=== PATIENT | female | born 1990 | race Caucasian/White ===

== ENCOUNTER 2016-03-10 23:46 | Outpatient (CLI) | payer BC ==
[~2016-03-10] VITALS: Ht 165.1 cm; Wt 105.2 kg
[~2016-03-10 23:46] MED LIST: ENDOCET 5-3251 EACH PO; FOLIC ACID0.4 MG; IBUPROFEN800 MG PO; NAPROSYN500 MG PO; NOHOMEMEDS; NORCO 5/3251 TABLET PO; PERCOCET 5/31 TABLET PO; ZOFRAN4 MG PO
[2016-03-11 00:11] VITALS: BP 121/75
[2016-03-11 01:13] LABS: EOSINOPHIL (%) 1.4 % (0-5); EOSINOPHIL COUNT 0.1 K/uL (0-0.3); HEMATOCRIT 34.1 % (36.0-46.0); IMMATURE GRANULOCYTE (%) 0.1 % (0.0-0.7); IMMATURE GRANULOCYTE COUNT 0.1 K/uL; LYMPHOCYTE COUNT 0.8 K/uL (1.0-2.8); MCH 27.4 PG (29.0-34.0); MCHC 33.4 G/DL (30.0-36.0); MEAN PLAT.VOLUME 10.4 uM^3 (9.5-12.4); MONOCYTE (%) 8.7 % (3-12); MONOCYTE COUNT 0.7 K/uL (0-0.8); NEUTROPHIL (%) 79.4 % (45-76); NEUTROPHIL COUNT 6.4 K/uL (1.8-6.4); PLATELET COUNT 240 K/uL (156-360); RBC DIS.WIDTH-SD 43.4 % (39-53); RED BLOOD COUNT 4.16 M/uL (3.80-5.20); WHITE BLOOD COUNT 8.1 K/uL (4.1-10.2)
[2016-03-11 01:45] LABS: AMPHETAMINES QUANT VALUE 0 NG/ML; BARBITUATES QUANT VALUE 0 NG/ML; BENZODIAZEPINES QUANT VALUE 0 NG/ML; BENZODIAZEPINES, URINE SCREEN Negative (200 ng/mL); MARIJUANA QUANT VALUE 0 NG/ML; OPIATES QUANTITATIVE VALUE 0 NG/ML; PHENCYCLIDINE QUANT VALUE 0 NG/ML
[2016-03-11 01:58] VITALS: BP 112/69
[2016-03-11] MEDS ORDERED: PRENATAL TABLE1 EAC3 PO (02:06)
[2016-03-11] MEDS ORDERED: LABETALOL HCL200 MG PO (02:06)
== END 2016-03-11 04:10 | disposition home or self-care (01) ==
LOC: LDRP-OP 23:46 → 2WEST 23:47
PROVIDERS: Advanced Practice Midwife
DX: O46.92 Antepartum hemorrhage, unspecified, second trimester (principal); O99.89 Other specified diseases and conditions complicating pregnancy, childbirth and the puerperium; Z3A.23 23 weeks gestation of pregnancy
CPT/HCPCS: 59025; 76815; 85025; 86850; 86900; 86901; G0378; J2790

== ENCOUNTER → 2016-04-08 | Outpatient (CLI) | payer BC ==
[~2016-04-08] MED LIST changes: +LABETALOL HCL200 MG PO; +PRENATAL TABLE1 EAC3 PO
== END | disposition home or self-care (01) ==
LOC: CDC 14:42
DX: O99.210 Obesity complicating pregnancy, unspecified trimester (principal); O09.90 Supervision of high risk pregnancy, unspecified, unspecified trimester; I10 Essential (primary) hypertension
CPT/HCPCS: 93000

== ENCOUNTER → 2016-06-17 | Outpatient (CLI) | payer BC, OTHER ==
[~2016-06-17] VITALS: Ht 165.1 cm; Wt 110.5 kg
[~2016-06-17] MED LIST changes: +LO-DOSE ASPIRIN81 M2 PO
[2016-06-17 14:57] VITALS: BP 133/89
== END | disposition home or self-care (01) ==
LOC: IVINF 14:31
DX: Z31.82 Encounter for Rh incompatibility status (principal); Z3A.37 37 weeks gestation of pregnancy
CPT/HCPCS: 96372; J2790

== ENCOUNTER 2016-06-30 06:52 | Inpatient (IN) | payer BC, OTHER ==
[2016-06-30] VITALS (32 sets, daily range): BP systolic 99–149; BP diastolic 51–96
[~2016-06-30] VITALS: Ht 165.1 cm; Wt 111.1 kg
[2016-06-30 09:29] LABS: EOSINOPHIL (%) 0.5 % (0-5); HEMATOCRIT 36.3 % (36.0-46.0); IMMATURE GRANULOCYTE (%) 0.3 % (0.0-0.7); INSTRUMENT ABS NEUTROPHIL CT 5.2 K/uL; LYMPHOCYTE COUNT 0.6 K/uL (1.0-2.8); MCH 25.6 PG (29.0-34.0); MCHC 31.1 G/DL (30.0-36.0); MCV 82.1 FL (83-99); MONOCYTE (%) 8.8 % (3-12); MONOCYTE COUNT 0.6 K/uL (0-0.8); NEUTROPHIL (%) 80.7 % (45-76); NEUTROPHIL COUNT 5.2 K/uL (1.8-6.4); PLATELET COUNT 247 K/uL (156-360); RBC DIS.WIDTH-CV 13.9 % (11.8-14.6); RBC DIS.WIDTH-SD 40.8 % (39-53); RED BLOOD COUNT 4.42 M/uL (3.80-5.20); WHITE BLOOD COUNT 6.5 K/uL (4.1-10.2)
[2016-06-30 09:48] LABS: ANION GAP 9 MEQ/L (2-14); CHLORIDE 105 MEQ/L (99-109); POTASSIUM 4.2 MEQ/L (3.7-5.4); SAMPLE HEMOLYSIS CHECK 0; SAMPLE ICTERIC CHECK 0; SAMPLE LIPEMIA CHECK 0; SODIUM 136 MEQ/L (136-147); TOTAL BILIRUBIN 0.5 MG/DL (0.0-1.0)
[2016-06-30 09:52] LABS: ADD MIUA? YES; BILIRUBIN NEGATIVE; BLOOD NEGATIVE; COLOR AMBER ((YELLOW)); GLUCOSE (STRIP) NEGATIVE; KETONES NEGATIVE; LEUKOCYTES SMALL; NITRITE NEGATIVE; PROTEIN (STRIP) 30; SPECIFIC GRAVITY 1.027 (1.000-1.030); UROBILINOGEN 0.2 MG/DL (0.2-1.0)
[2016-06-30 09:53] LABS: ALKALINE PHOSPHATASE 145 IU/L (3-129); GFR ESTIMATE (CALCULATED) > 59 mL/min/; GLUCOSE 80 mg/dL (70-99); LACTATE DEHYDROGENASE 166 IU/L (20-246); UREA NITROGEN (BUN) 6 mg/dL (9-23); URIC ACID 3.7 mg/dL (3.1-9.2)
[2016-06-30 10:00] LABS: BACTERIA RARE /HPF; EPITHELIAL CELLS 2+ /HPF; MUCUS 2+ /LPF; RED BLOOD CELLS 0-5 /HPF (0-5); UCUL ADDED? NO
[2016-06-30 10:29] LABS: UR CREATININE CONCENTRATION 265.3 MG/DL
[2016-07-01] VITALS (8 sets, daily range): BP systolic 110–131; BP diastolic 54–74
[2016-07-01 08:31] LABS: EOSINOPHIL (%) 0.4 % (0-5); HEMATOCRIT 29.5 % (36.0-46.0); IMMATURE GRANULOCYTE (%) 0.3 % (0.0-0.7); INSTRUMENT ABS NEUTROPHIL CT 6.1 K/uL; LYMPHOCYTE COUNT 0.6 K/uL (1.0-2.8); MCH 25.9 PG (29.0-34.0); MCHC 31.2 G/DL (30.0-36.0); MCV 83.1 FL (83-99); MEAN PLAT.VOLUME 10.2 uM^3 (9.5-12.4); MONOCYTE (%) 7.9 % (3-12); MONOCYTE COUNT 0.6 K/uL (0-0.8); NEUTROPHIL (%) 83.5 % (45-76); NEUTROPHIL COUNT 6.1 K/uL (1.8-6.4); PLATELET COUNT 203 K/uL (156-360); RBC DIS.WIDTH-CV 13.8 % (11.8-14.6); RBC DIS.WIDTH-SD 42.3 % (39-53); RED BLOOD COUNT 3.55 M/uL (3.80-5.20); WHITE BLOOD COUNT 7.3 K/uL (4.1-10.2)
[2016-07-02 02:58] VITALS: BP 120/67
[2016-07-02 08:00] VITALS: BP 136/74
== END 2016-07-02 16:04 | disposition home or self-care (01) | DRG 775 ==
LOC: LDRP-OP → 2WEST 06:53 → LDRP-OP 07:05 → 2WEST 17:46 → LDRP-OP 08-06 05:27
PROVIDERS: Advanced Practice Midwife
PROC: 3E033VJ Introduction of Other Hormone into Peripheral Vein, Percutaneous Approach (ICD-10-PCS; principal; 2016-06-30)
PROC: 00HU33Z Insertion of Infusion Device into Spinal Canal, Percutaneous Approach (ICD-10-PCS; principal; 2016-06-30)
PROC: 3E0R3CZ (ICD-10-PCS; principal; 2016-06-30)
PROC: 10E0XZZ Delivery of Products of Conception, External Approach (ICD-10-PCS; principal; 2016-06-30)
DX: O14.94 Unspecified pre-eclampsia, complicating childbirth (principal); O13.4 Gestational [pregnancy-induced] hypertension without significant proteinuria, complicating childbirth; O99.824 Streptococcus B carrier state complicating childbirth; Z3A.38 38 weeks gestation of pregnancy; Z37.0 Single live birth
CPT/HCPCS: 80053; 81003; 82570; 83615; 84156; 84550; 85025; 88307; C1755; J0595; J2540; J3010; J7120

== ENCOUNTER 2016-12-27 16:18 | Emergency (ER) | payer BC, OTHER ==
[~2016-12-27] VITALS: Ht 165.1 cm; Wt 116.9 kg
[2016-12-27 20:18] LABS: HEMATOCRIT 37.9 % (36.0-46.0); MCH 23.8 PG (29.0-34.0); MCHC 30.9 G/DL (30.0-36.0); MCV 77.2 FL (83-99); PLATELET COUNT 374 K/uL (156-360); RBC DIS.WIDTH-CV 13.4 % (11.8-14.6); RBC DIS.WIDTH-SD 37.5 % (39-53); RED BLOOD COUNT 4.91 M/uL (3.80-5.20); WHITE BLOOD COUNT 6.1 K/uL (4.1-10.2)
[2016-12-27 20:25] LABS: CHLORIDE 110 mEq/L (99-109); SODIUM 139 mEq/L (136-147)
[2016-12-27 20:27] LABS: GLUCOSE 99 mg/dL (70-99)
[2016-12-27 20:28] LABS: ANION GAP 7 MEQ/L (2-14)
[2016-12-27 20:31] LABS: GFR ESTIMATE (CALCULATED) > 59 mL/min/
[2016-12-27 20:32] LABS: UREA NITROGEN (BUN) 12 mg/dL (9-23)
[2016-12-27 20:39] LABS: QUANTITATIVE HCG < 4.0 MIU/ML
[2016-12-27 20:44] LABS: ADD MIUA? YES; BILIRUBIN NEGATIVE; BLOOD SMALL; COLOR YELLOW ((YELLOW)); GLUCOSE (STRIP) NEGATIVE; KETONES NEGATIVE; LEUKOCYTES NEGATIVE; NITRITE NEGATIVE; PROTEIN (STRIP) NEGATIVE; SPECIFIC GRAVITY 1.018 (1.000-1.030); UROBILINOGEN 0.2 MG/DL (0.2-1.0)
[2016-12-27 20:46] LABS: BACTERIA NONE SEEN /HPF; EPITHELIAL CELLS RARE /HPF; MUCUS TRACE /LPF; RED BLOOD CELLS 0-5 /HPF (0-5); UCUL ADDED? NO; WHITE BLOOD CELLS 0-5 /HPF (0-5)
[2016-12-27] MEDS ORDERED: ANTIVERT25 MG PO (22:06)
[2016-12-27 22:35] VITALS: BP 161/94
== END 2016-12-27 22:39 | disposition home or self-care (01) ==
LOC: EME 16:18
PROVIDERS: Physician Assistant
DX: R51 Headache (principal); R42 Dizziness and giddiness; K21.9 Gastro-esophageal reflux disease without esophagitis
CPT/HCPCS: 71020; 80048; 81003; 84702; 85027; 93005; 99281; 99285; J1100; J1885; J2405; J7030

== ENCOUNTER 2017-08-30 16:28 | Emergency (ER) | payer OTHER ==
[~2017-08-30] VITALS: Ht 165.1 cm; Wt 116.9 kg
[~2017-08-30 16:28] MED LIST changes: +ANTIVERT25 MG PO
[2017-08-30 17:03] LABS: HEMATOCRIT 39.1 % (36.0-46.0); HEMOGLOBIN 12.1 G/DL (11.9-15.5); MCH 23.5 PG (29.0-34.0); MCHC 30.9 G/DL (30.0-36.0); MCV 76.1 FL (83-99); PLATELET COUNT 345 K/uL (156-360); RBC DIS.WIDTH-CV 14.7 % (11.8-14.6); RBC DIS.WIDTH-SD 40.2 % (39-53); RED BLOOD COUNT 5.14 M/uL (3.80-5.20)
[2017-08-30 17:15] LABS: ALBUMIN 4.5 g/dL (3.2-4.8)
[2017-08-30 17:16] LABS: CHLORIDE 107 mEq/L (99-109); POTASSIUM 3.8 mEq/L (3.7-5.4); SODIUM 142 mEq/L (136-147)
[2017-08-30 17:18] LABS: GLUCOSE 95 mg/dL (70-99); TOTAL PROTEIN 7.3 g/dL (6.4-8.3)
[2017-08-30 17:20] LABS: TOTAL BILIRUBIN 0.4 mg/dL (0.0-1.0)
[2017-08-30 17:21] LABS: ALKALINE PHOSPHATASE 124 IU/L (3-129)
[2017-08-30 17:22] LABS: CREATININE 0.8 mg/dL (0.6-1.3); GFR ESTIMATE (CALCULATED) > 59 mL/min/
[2017-08-30 17:23] LABS: AST (GOT) 13 IU/L (2-34); UREA NITROGEN (BUN) 9 mg/dL (9-23)
[2017-08-30 17:25] LABS: ALT (GPT) 12 IU/L (3-49)
[2017-08-30 17:31] LABS: QUANTITATIVE HCG < 4.0 MIU/ML
[2017-08-30 19:06] LABS: LIPASE 23 U/L (1.0-51.0)
[2017-08-30 21:16] LABS: APPEARANCE CLOUDY ((CLEAR)); COLOR YELLOW ((YELLOW))
[2017-08-30 21:17] LABS: BILIRUBIN SMALL; BLOOD SMALL; GLUCOSE (STRIP) NEGATIVE; KETONES NEGATIVE; LEUKOCYTES NEGATIVE; NITRITE NEGATIVE; PROTEIN (STRIP) TRACE; UROBILINOGEN 0.2 MG/DL (0.2-1.0)
[2017-08-30 21:46] LABS: EPITHELIAL CELLS RARE /HPF; MUCUS RARE /LPF; RED BLOOD CELLS NONE SEEN /HPF (0-5); WHITE BLOOD CELLS NONE SEEN /HPF (0-5)
[2017-08-30 21:47] LABS: AMORPHOUS URATES CRYSTALS 2+; BACTERIA RARE /HPF; UCUL ADDED? NO
[2017-08-30] MEDS ORDERED: ZOFRAN ODT8 MG PO (22:48)
[2017-08-30] MEDS ORDERED: BENTYL20 MG PO (22:48)
[2017-08-30 23:07] VITALS: BP 135/85
== END 2017-08-30 23:07 | disposition home or self-care (01) ==
LOC: EME 16:28
DX: R10.31 Right lower quadrant pain (principal); R11.0 Nausea; E86.0 Dehydration; M54.9 Dorsalgia, unspecified; R51 Headache; K57.30 Diverticulosis of large intestine without perforation or abscess without bleeding; Z90.49 Acquired absence of other specified parts of digestive tract
CPT/HCPCS: 74176; 80053; 81003; 83690; 84702; 85027; 87077; 87086; 87491; 87591; 99281; 99285; J1885; J2405; J7030

== ENCOUNTER 2017-09-19 13:17 | Emergency (ER) | payer OTHER ==
[~2017-09-19] VITALS: Ht 165.1 cm; Wt 116.5 kg
[~2017-09-19 13:17] MED LIST changes: +BENTYL20 MG PO; +ZOFRAN ODT8 MG PO
[2017-09-19 14:02] LABS: HEMATOCRIT 40.1 % (36.0-46.0); HEMOGLOBIN 12.7 G/DL (11.9-15.5); MCH 23.8 PG (29.0-34.0); MCHC 31.7 G/DL (30.0-36.0); MCV 75.1 FL (83-99); PLATELET COUNT 328 K/uL (156-360); RBC DIS.WIDTH-CV 14.6 % (11.8-14.6); RBC DIS.WIDTH-SD 39.2 % (39-53); RED BLOOD COUNT 5.34 M/uL (3.80-5.20); WHITE BLOOD COUNT 6.4 K/uL (4.1-10.2)
[2017-09-19 14:22] LABS: CHLORIDE 108 mEq/L (99-109); POTASSIUM 4.6 mEq/L (3.7-5.4); SODIUM 141 mEq/L (136-147)
[2017-09-19 14:23] LABS: GLUCOSE 89 mg/dL (70-99)
[2017-09-19 14:27] LABS: CREATININE 0.8 mg/dL (0.6-1.3); GFR ESTIMATE (CALCULATED) > 59 mL/min/
[2017-09-19 14:28] LABS: UREA NITROGEN (BUN) 11 mg/dL (9-23)
[2017-09-19 14:30] LABS: ALBUMIN 4.5 g/dL (3.2-4.8)
[2017-09-19 14:33] LABS: TOTAL PROTEIN 7.3 g/dL (6.4-8.3)
[2017-09-19 14:35] LABS: TOTAL BILIRUBIN 0.5 mg/dL (0.0-1.0)
[2017-09-19 14:36] LABS: ALKALINE PHOSPHATASE 127 IU/L (3-129)
[2017-09-19 14:38] LABS: QUANTITATIVE HCG < 4.0 MIU/ML
[2017-09-19 14:39] LABS: ALT (GPT) 13 IU/L (3-49); AST (GOT) 13 IU/L (2-34); DIRECT BILIRUBIN 0.2 mg/dL (0.0-0.3)
[2017-09-19] MEDS ORDERED: BENTYL20 MG PO (16:13)
[2017-09-19 16:27] LABS: APPEARANCE CLEAR ((CLEAR)); BILIRUBIN NEGATIVE; BLOOD NEGATIVE; COLOR YELLOW ((YELLOW)); GLUCOSE (STRIP) NEGATIVE; KETONES 5; LEUKOCYTES NEGATIVE; NITRITE NEGATIVE; PROTEIN (STRIP) NEGATIVE; SPECIFIC GRAVITY 1.013 (1.000-1.030); UCUL ADDED? NO; UROBILINOGEN 0.2 MG/DL (0.2-1.0)
[2017-09-19 16:47] VITALS: BP 112/79
== END 2017-09-19 16:47 | disposition home or self-care (01) ==
LOC: EME 13:17
DX: R10.31 Right lower quadrant pain (principal); K62.5 Hemorrhage of anus and rectum; K21.9 Gastro-esophageal reflux disease without esophagitis; Z87.19 Personal history of other diseases of the digestive system; Z90.49 Acquired absence of other specified parts of digestive tract; Z88.8 Allergy status to other drugs, medicaments and biological substances
CPT/HCPCS: 80048; 80076; 81003; 84702; 85027; 99281; 99284; J1885; J2405; J7030

== ENCOUNTER 2017-09-28 09:09 | Observation (INO) | payer OTHER ==
[~2017-09-28] VITALS: Ht 165.1 cm; Wt 116.4 kg
[2017-09-28 09:54] LABS: HEMATOCRIT 36.2 % (36.0-46.0); HEMOGLOBIN 11.5 G/DL (11.9-15.5); MCHC 31.8 G/DL (30.0-36.0); MCV 75.4 FL (83-99); PLATELET COUNT 270 K/uL (156-360); RBC DIS.WIDTH-CV 14.6 % (11.8-14.6); RBC DIS.WIDTH-SD 40.1 % (39-53); WHITE BLOOD COUNT 5.1 K/uL (4.1-10.2)
[2017-09-28 10:02] LABS: ALBUMIN 4.1 g/dL (3.2-4.8); CHLORIDE 110 mEq/L (99-109); POTASSIUM 4.3 mEq/L (3.7-5.4); SODIUM 140 mEq/L (136-147)
[2017-09-28 10:05] LABS: GLUCOSE 94 mg/dL (70-99); TOTAL PROTEIN 6.6 g/dL (6.4-8.3)
[2017-09-28 10:07] LABS: TOTAL BILIRUBIN 0.7 mg/dL (0.0-1.0)
[2017-09-28 10:08] LABS: ALKALINE PHOSPHATASE 117 IU/L (3-129); CREATININE 0.8 mg/dL (0.6-1.3); GFR ESTIMATE (CALCULATED) > 59 mL/min/
[2017-09-28 10:09] LABS: UREA NITROGEN (BUN) 9 mg/dL (9-23)
[2017-09-28 10:10] LABS: AST (GOT) 14 IU/L (2-34)
[2017-09-28 10:11] LABS: ALT (GPT) 12 IU/L (3-49)
[2017-09-28 10:17] LABS: QUANTITATIVE HCG < 4.0 MIU/ML
[2017-09-28 14:05] VITALS: BP 140/85
[2017-09-28 16:19] LABS: HEMATOCRIT 35.8 % (36.0-46.0); HEMOGLOBIN 10.8 G/DL (11.9-15.5); MCV 76.3 FL (83-99)
[2017-09-28 17:13] VITALS: BP 135/67
[2017-09-28 18:59] LABS: HEMATOCRIT 36.2 % (36.0-46.0); HEMOGLOBIN 11.1 G/DL (11.9-15.5); MCH 23.5 PG (29.0-34.0); MCHC 30.7 G/DL (30.0-36.0); MCV 76.7 FL (83-99); PLATELET COUNT 287 K/uL (156-360); RBC DIS.WIDTH-CV 14.6 % (11.8-14.6); RBC DIS.WIDTH-SD 40.4 % (39-53); RED BLOOD COUNT 4.72 M/uL (3.80-5.20); WHITE BLOOD COUNT 4.4 K/uL (4.1-10.2)
[2017-09-28 19:10] LABS: INTER. NORMALIZED RATIO 1.2
[2017-09-28 19:13] LABS: PTT 30.3 SEC (25-37)
[2017-09-28 19:17] VITALS: BP 132/87
[2017-09-28 22:06] LABS: HEMATOCRIT 37.3 % (36.0-46.0); HEMOGLOBIN 11.5 G/DL (11.9-15.5); MCV 75.7 FL (83-99)
[2017-09-29 00:07] VITALS: BP 118/72
[2017-09-29 02:45] LABS: HEMATOCRIT 34.1 % (36.0-46.0); HEMOGLOBIN 10.8 G/DL (11.9-15.5); MCHC 31.7 G/DL (30.0-36.0); MCV 75.8 FL (83-99); PLATELET COUNT 259 K/uL (156-360); RBC DIS.WIDTH-CV 14.6 % (11.8-14.6); RBC DIS.WIDTH-SD 40.2 % (39-53)
[2017-09-29 04:03] VITALS: BP 120/61
[2017-09-29 07:44] VITALS: BP 121/64
[2017-09-29 10:41] LABS: HEMATOCRIT 35.1 % (36.0-46.0); HEMOGLOBIN 10.6 G/DL (11.9-15.5); MCH 23.3 PG (29.0-34.0); MCHC 30.2 G/DL (30.0-36.0); MCV 77.1 FL (83-99); PLATELET COUNT 265 K/uL (156-360); RBC DIS.WIDTH-CV 14.6 % (11.8-14.6); RBC DIS.WIDTH-SD 40.5 % (39-53); RED BLOOD COUNT 4.55 M/uL (3.80-5.20); WHITE BLOOD COUNT 4.7 K/uL (4.1-10.2)
[2017-09-29 11:11] VITALS: BP 118/74
[2017-09-29 15:20] VITALS: BP 119/74
[2017-09-29 19:44] LABS: HEMATOCRIT 34.3 % (36.0-46.0); HEMOGLOBIN 10.5 G/DL (11.9-15.5); MCH 23.4 PG (29.0-34.0); MCHC 30.6 G/DL (30.0-36.0); MCV 76.6 FL (83-99); PLATELET COUNT 259 K/uL (156-360); RBC DIS.WIDTH-CV 14.6 % (11.8-14.6); RBC DIS.WIDTH-SD 40.1 % (39-53); RED BLOOD COUNT 4.48 M/uL (3.80-5.20)
[2017-09-29 21:00] VITALS: BP 115/78
[2017-09-29 23:17] LABS: HEMATOCRIT 32.1 % (36.0-46.0); HEMOGLOBIN 10.1 G/DL (11.9-15.5); MCH 23.9 PG (29.0-34.0); MCHC 31.5 G/DL (30.0-36.0); MCV 75.9 FL (83-99); PLATELET COUNT 262 K/uL (156-360); RBC DIS.WIDTH-CV 14.6 % (11.8-14.6); RBC DIS.WIDTH-SD 39.9 % (39-53); RED BLOOD COUNT 4.23 M/uL (3.80-5.20); WHITE BLOOD COUNT 3.9 K/uL (4.1-10.2)
[2017-09-30 00:24] VITALS: BP 108/60
[2017-09-30 04:18] VITALS: BP 107/63
[2017-09-30 07:46] VITALS: BP 110/61
[2017-09-30 08:53] LABS: HEMOGLOBIN 10.1 G/DL (11.9-15.5); MCH 23.7 PG (29.0-34.0); MCHC 30.6 G/DL (30.0-36.0); MCV 77.3 FL (83-99); PLATELET COUNT 252 K/uL (156-360); RBC DIS.WIDTH-CV 14.7 % (11.8-14.6); RBC DIS.WIDTH-SD 41.2 % (39-53); RED BLOOD COUNT 4.27 M/uL (3.80-5.20); WHITE BLOOD COUNT 3.8 K/uL (4.1-10.2)
[2017-09-30 11:16] VITALS: BP 111/64
[2017-09-30 15:08] VITALS: BP 123/66
[2017-09-30 16:11] LABS: HEMATOCRIT 32.3 % (36.0-46.0); HEMOGLOBIN 9.9 G/DL (11.9-15.5); MCH 23.6 PG (29.0-34.0); MCHC 30.7 G/DL (30.0-36.0); MCV 76.9 FL (83-99); PLATELET COUNT 249 K/uL (156-360); RBC DIS.WIDTH-CV 14.6 % (11.8-14.6); RBC DIS.WIDTH-SD 40.4 % (39-53); WHITE BLOOD COUNT 2.6 K/uL (4.1-10.2)
[2017-09-30 19:08] VITALS: BP 123/81
[2017-10-01 00:51] LABS: HEMATOCRIT 30.5 % (36.0-46.0); HEMOGLOBIN 9.7 G/DL (11.9-15.5); MCH 24.1 PG (29.0-34.0); MCHC 31.8 G/DL (30.0-36.0); MCV 75.7 FL (83-99); PLATELET COUNT 260 K/uL (156-360); RBC DIS.WIDTH-CV 14.6 % (11.8-14.6); RBC DIS.WIDTH-SD 39.6 % (39-53); RED BLOOD COUNT 4.03 M/uL (3.80-5.20); WHITE BLOOD COUNT 4.9 K/uL (4.1-10.2)
[2017-10-01 00:56] VITALS: BP 102/56
[2017-10-01 04:40] VITALS: BP 106/60
[2017-10-01 09:35] VITALS: BP 117/59
[2017-10-01 10:33] LABS: HEMATOCRIT 32.2 % (36.0-46.0); HEMOGLOBIN 9.7 G/DL (11.9-15.5); MCH 23.2 PG (29.0-34.0); MCHC 30.1 G/DL (30.0-36.0); MCV 76.8 FL (83-99); PLATELET COUNT 270 K/uL (156-360); RBC DIS.WIDTH-CV 14.6 % (11.8-14.6); RBC DIS.WIDTH-SD 40.5 % (39-53); RED BLOOD COUNT 4.19 M/uL (3.80-5.20); WHITE BLOOD COUNT 4.1 K/uL (4.1-10.2)
[2017-10-01 12:49] VITALS: BP 92/51
== END 2017-10-01 13:25 | disposition home or self-care (01) ==
LOC: EME 09:09 → 4SOUTH 12:38 → EDOF 12:38 → ENRESERV 12:45 → 4SOUTH 13:59
PROVIDERS: Nurse Practitioner Family; Physician Assistant; Specialist
DX: K92.1 Melena (principal); K31.7 Polyp of stomach and duodenum; K64.8 Other hemorrhoids; Z53.09 Procedure and treatment not carried out because of other contraindication; D50.0 Iron deficiency anemia secondary to blood loss (chronic); K21.9 Gastro-esophageal reflux disease without esophagitis; Z86.010 Personal history of colon polyps; I10 Essential (primary) hypertension; R10.84 Generalized abdominal pain; E66.9 Obesity, unspecified; G43.909 Migraine, unspecified, not intractable, without status migrainosus; Z90.49 Acquired absence of other specified parts of digestive tract; Z80.0 Family history of malignant neoplasm of digestive organs; Z98.890 Other specified postprocedural states; F17.210 Nicotine dependence, cigarettes, uncomplicated; Z83.71 Family history of colonic polyps; Z91.048 Other nonmedicinal substance allergy status
CPT/HCPCS: 74022; 80053; 81003; 82150; 84702; 85002; 85014; 85018; 85027; 85610; 85730; 86850; 86900; 86901; 88305; 88342 TC; 99281; 99285; C9113; G0378; J2250; J2405; J7030